=== PATIENT | male | born 2000 | race Two or more races ===

== ENCOUNTER 2021-01-24 17:50 | Emergency (ER) | payer SELFPAY ==
--- NOTE | ~2021-01-24 | XR_ITS ---
EXAMINATION: LEFT HAND CLINICAL INFORMATION: Middle finger swelling and pain COMPARISON: None TECHNIQUE: 3 views left hand FINDINGS: Soft tissue swelling is present predominantly centered around the PIP joint of the third digit. There is a tiny avulsion fracture arising from the inferolateral lateral corner of the middle phalanx. No other fractures are seen. XR/XR hand wrist LT IMPRESSION: Tiny avulsion fracture arising from the inferolateral corner of the middle phalanx of the third digit
--- NOTE | ~2021-01-24 | US_ITS ---
EXAMINATION: US VENOUS WITH DOPPLER UPPER EXTREMITY, RIGHT CLINICAL INFORMATION: Edema and swelling COMPARISON: None TECHNIQUE: Ultrasound of the upper extremity is performed using compression sonography and color and pulse Doppler flow with assessment of augmentation of flow. There is also imaging and Doppler assessment of the jugular and subclavian veins. Spectral analysis with color-flow imaging is performed. FINDINGS: Respiratory variation, normal compression, and augmented flow are noted throughout the upper extremity including the axillary, brachial, cubital, and radial and ulnar veins. There is normal flow in the internal jugular and subclavian veins. There is no visible deep or superficial thrombophlebitis. If the patient's symptoms progress, a followup ultrasound in 5 -7 days might be of value to exclude proximal propagation from a nonvisualized distal arm vein. US/US venous duplex UE RT IMPRESSION: No DVT demonstrated in the right upper extremity
[2021-01-24 19:54] VITALS: BP 138/78; PULSE 86; RESP 18; TEMP 36.8; O2SAT 99; BMI 25.0
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
[2021-01-24 22:00] VITALS: BP 124/67; PULSE 74; RESP 16; TEMP 36.5; O2SAT 98
== END 2021-01-24 23:44 | disposition home or self-care (01) ==
PROVIDERS: Emergency Provider Internal Medicine
DX: S62.653A Nondisplaced fracture of middle phalanx of left middle finger, initial encounter for closed fracture (principal); S41.131A Puncture wound without foreign body of right upper arm, initial encounter; M79.621 Pain in right upper arm; M79.642 Pain in left hand; R60.0 Localized edema; W26.0XXA Contact with knife, initial encounter; Y93.9 Activity, unspecified; Y92.9 Unspecified place or not applicable; Y99.9 Unspecified external cause status; Z79.899 Other long term (current) drug therapy
CPT/HCPCS: 29130; 73110; 73130; 93971; 99284

== ENCOUNTER 2021-01-31 02:49 | Emergency (ER) | payer MEDICAID, SELFPAY ==
[2021-01-31 04:14] VITALS: BP 129/68; PULSE 70; RESP 18; TEMP 36.4; O2SAT 98; BMI 24.3
[2021-01-31 06:31] LABS: Amphetamine Screen Urine Not Detected (Not Detect); Barbiturates, Urine Not Detected (Not Detect); Benzodiazepines Screen Urine Not Detected (Not Detect); Cannabinoid Screen Urine POSITIVE (Not Detect); Cocaine Screen Urine POSITIVE (Not Detect); Opiate Screen Urine POSITIVE (Not Detect); Phencyclidine Screen Urine Not Detected (Not Detect)
--- NOTE | 2021-01-31 09:19 | MHC.RECOVSUP ---
Recovery Support note: Patient is a 20 year old Chilean speaking male who presented to [facility] ED seeking detox. Patient reports using a lot of percocet and that he has never been to detox before. Patient reports he has tried Suboxone in the past however did not like it. Patient reports he has made attempts to find a bed this morning and was unsuccessful. Patient reports he is willing to go anywhere for treatment. This senior mortgage underwriter will assist patient in securing an ATS bed.
--- NOTE | 2021-01-31 09:26 | ED.GENADULT ---
HPI - General Adult General Chief complaint: General Medical Stated complaint: seeking detox Time Seen by Provider: 01/31/21 08:07 Source: patient Mode of arrival: ambulatory History of Present Illness HPI narrative: 20-year-old male no significant past medical history presenting to the ED seeking detox. Patient reports using Percocets, heroin, and marijuana, admits last used yesterday morning. Admits to using about 8 pills of 30 mg of Percocet daily. Admits to feeling nauseous, injury/chills, mild abdominal discomfort. Denies SI/HI, CP/SOB, fever Onset (ago): day(s) Related Data Previous Rx's Medication Instructions Recorded acetaminophen [Tylenol Extra 500 mg PO Q6H PRN #20 tab 01/24/21 Strength] naproxen 500 mg PO BID PRN 10 Days #20 tab 01/24/21 Allergies Allergy/AdvReac Type Severity Reaction Status Date / Time No Known Allergies Allergy Verified 01/24/21 19:53 Review of Systems Review of Systems: Constitutional: No Fever, + Chills Eyes: No Eye Pain, No Swelling, No Vision Changes Cardiovascular: No Chest Pain, No SOB Respiratory: No Cough, No Sputum Gastrointestinal: +Nausea, No Vomiting, No Diarrhea, No Constipation,+ Abdominal pain Genitourinary: No Dysuria, No Urinary Frequency, No Hematuria Musculoskeletal: No joint pain, No Myalgias Skin: No Skin Lesions, No rash Neuro: No Weakness, No Numbness Psych: No SI/HI Yes all other systems are reviewed and are negative [facility] Past Medical History Attestation statement: The following information was validated with the patient. Medical History (Updated 01/31/21 @ 11:00 by SURYA Angeles) No pertinent past medical history Social History Social History Advance Directives: No Advance Directives Information Provided: No Physical Exam Vital Signs: Vital Signs: Last Vital Signs Temp 97.5 F 01/31/21 04:14 Pulse 70 01/31/21 04:14 Resp 18 01/31/21 04:14 BP 129/68 01/31/21 04:14 Pulse Ox 98 01/31/21 04:14 Body Mass Index 24.3 Const: General: cooperative, healthy appearing, no acute distress, well developed, alert and awake Orientation/consciousness: patient oriented x3 Limitations: no limitations HENMT: Head: Yes normal to inspection Ears: hearing grossly normal bilaterally General nose exam: Normal external nose present Face and sinus: Yes normal facial exam Eyes: General: appearance normal, both eyes and all related structures EOM: EOMs intact bilaterally Neck: Neck: Yes normal visual inspection Resp: Effort & Inspection: normal respiratory effort Auscultation: clear to auscultation bilaterally, no rales, no rhonchi and no wheezes Cardio: Rate: regular rate Heart sounds: S1 normal heart sound present and S2 normal heart sound present GI: Inspection: Yes normal to inspection Palpation (GI): Soft to palpation, nontender, no guarding and not rigid Skin: Rashes: no rashes Wounds: no wounds Neuro: General: patient oriented x3, tone normal and moves all extremities Gait exam (Neuro): Normal gait present Extrem: General: Yes normal to inspection Course Course Course Narrative: -tox screen positive for opiates, cocaine, and THC -[facility] legal recovery specialist secured a bed in [place] for detox for patient, will discharge with plan for detox Medical Decision Making MDM Narrative Medical decision making narrative: 20-year-old male no significant past medical history presenting to the ED seeking detox. Patient reports using Percocets, heroin, and marijuana, admits last used yesterday morning. On exam vital signs stable, NAD, nontoxic, sleeping comfortably, abdomen soft/nontender, lungs CTA. Patient has not appeared to be in withdrawal at this time. Plan: [facility], will have legal recovery specialist speak to patient for detox references Lab Data Labs: Lab Results 01/31/21 Range/Units 06:06 Urine Opiates Screen POSITIVE H (Not Detect) Ur Barbiturates Screen Not Detected (Not Detect) Ur Phencyclidine Scrn Not Detected (Not Detect) Ur Amphetamines Screen Not Detected (Not Detect) U Benzodiazepines Scrn Not Detected (Not Detect) Urine Cocaine Screen POSITIVE H (Not Detect) U Marijuana (THC) Screen POSITIVE H (Not Detect) Discharge Plan Discharge Clinical Impression: Substance abuse Patient Disposition: Xfer Other Transfer Details: Detox in [place] Instructions: Polysubstance Abuse (ED) Additional Instructions: You have a detox bed in [place] proceed to this facility as scheduled for you Please do not take drugs or drink alcohol it can kill you If you have any thoughts of hurting herself or hurting others please return to the ED Prescriptions: No Action acetaminophen [Tylenol Extra Strength] 500 mg tablet 500 mg PO Q6H PRN (Reason: pain or fever) Qty: 20 RF: 0 naproxen 500 mg tablet 500 mg PO BID PRN (Reason: pain) 10 Days Qty: 20 RF: 0 Referrals: [facility] [Physician] - 2 days [facility] [Primary Care Provider] - 2 days
--- NOTE | 2021-01-31 11:03 | MHC.RECOVSUP ---
Recovery Support note: Patient was referred to [facility] in [place]. This parts data writer spoke with Kenya HOU who reports that patient is an appropriate referral and he is approved for admission. She reports a bed is currently being held and for patient to get to the facility as soon as possible. This parts data writer spoke with patient and his family. Patient is agreeable to going to [facility] and reports his family will be able to transport him to the facility. Patient and family reports no questions at this time. Discussed case with patients ED provider.
--- NOTE | 2021-01-31 11:10 | PC.NURSE ---
pt has remained calm and cooperative while in tx area and in no distress. academic coach has assisted pt with detox placement and family is transporting pt pt is agrreable to plan of care pt departed with family.
== END 2021-01-31 14:49 | disposition other institution (70) ==
PROVIDERS: Emergency Provider Emergency Medicine
DX: F11.10 Opioid abuse, uncomplicated (principal); F12.10 Cannabis abuse, uncomplicated
CPT/HCPCS: 80307; 99283

== ENCOUNTER 2022-01-19 09:59 | Emergency (ER) | payer MEDICAID, SELFPAY ==
--- NOTE | ~2022-01-19 | CT_ITS ---
EXAMINATION: CT ABDOMEN AND PELVIS WITHOUT CONTRAST CLINICAL INFORMATION: Abdominal pain COMPARISON: None TECHNIQUE: Multidetector volumetric imaging was performed from the superior aspect of the liver through the pubic symphysis. Sagittal and coronal reformatted images were obtained on the technologist's workstation. This CT examination was performed using dose optimization techniques as appropriate, variously including the following: *Automated exposure control *Adjustment of mA and/or kV according to patient size (this includes techniques or standardized protocols for targeted exams where dose is matched to indication/reason for exam; i.e. extremities or head) *Use of iterative reconstruction technique DLP: 518 mGy-cm FINDINGS: LUNG BASES: The visualized lung bases are unremarkable. LIVER, GALLBLADDER, AND BILIARY TREE: The liver is normal in size and shape but demonstrates minimally decreased attenuation suggesting hepatic steatosis. No focal hepatic lesion or biliary ductal dilatation is present. The gallbladder is unremarkable with no evidence of radiopaque gallstones, gallbladder wall thickening, or obvious pericholecystic inflammatory changes. PANCREAS: Unremarkable. SPLEEN: Unremarkable. ADRENAL GLANDS: Unremarkable. KIDNEYS AND URETERS: The kidneys are normal in size, shape, and attenuation. No hydronephrosis, hydroureter, or calculi seen. No perinephric stranding. BLADDER: Unremarkable. GASTROINTESTINAL TRACT: The small and large bowel are unremarkable. The appendix is unremarkable. ABDOMINAL WALL: No significant hernia is appreciated. LYMPH NODES: Normal. VASCULAR: Unremarkable. PELVIC VISCERA: Unremarkable. OSSEOUS STRUCTURES: Mild degenerative changes are present lower thoracic spine with Schmorl's nodes at the endplates of T10 and T11 and a superior endplate Schmorl's node at L1. CT/CT abdomen pelvis wo con IMPRESSION: 1. No significant abnormality. 2. Incidental note made of normal-sized liver with question of hepatic steatosis as well as mild degenerative changes in the spine with Schmorl's nodes. Fleischner guidelines were followed.
[2022-01-19 10:07] VITALS: BP 126/58; PULSE 62; RESP 18; TEMP 36.1; O2SAT 97; BMI 25.8
[2022-01-19 10:43] VITALS: BP 116/71; PULSE 58; RESP 16; O2SAT 96
--- NOTE | 2022-01-19 10:57 | ED.GENADULT ---
HPI - General Adult General Chief complaint: Abdominal Pain Stated complaint: vomiting, diarrhea, abd pain Time Seen by Provider: 01/19/22 10:57 Source: patient Mode of arrival: ambulatory Limitations: no limitations History of Present Illness HPI narrative: Patient is a 21 year old male presenting to the emergency department today with abdominal pain, nausea, and vomiting. Patient states that starting last night, he began having abdominal pain, nauea, and vomiting. Patient denies any dizziness, lightheadedness, fever, chills, blurry vision, double vision, loss of vision, chest pain, difficulty breathing, shortness of breath, back pain, night sweats, pain with urination, increased urinary frequency, increased urinary urgency, blood in his urine or stool, syncope or a near syncopal episode, recent trauma or falls, bowel incontinence, bladder incontinence, bowel retention, bladder retention, or any other complaints at this time. Onset (ago): day(s) (1) Location: abdomen Radiation: non-radiation Severity: mild Severity scale (1-10): 2 Quality: dull Pain Consistency: constant Relieving factors: none Exacerbating factors: none Associated symptoms: nausea/vomiting Treatments prior to arrival: none Related Data Previous Rx's Medication Instructions Recorded acetaminophen 500 mg tablet 500 mg PO Q6H PRN pain or fever 01/24/21 (Tylenol Extra Strength) #20 tabs naproxen 500 mg tablet 500 mg PO BID PRN pain 10 days #20 01/24/21 tabs Allergies Allergy/AdvReac Type Severity Reaction Status Date / Time No Known Allergies Allergy Verified 01/24/21 19:53 Review of Systems Constitutional: Constitutional: Reports no additional constitutional complaints, Denies chills, Denies fever(s) and Denies night sweats Eyes: Eyes: Reports no additional eye complaints, Denies blurry vision, Denies change in vision, Denies diplopia, Denies eye discharge, Denies loss of vision and Denies eye pain ENT: Denies dizziness Cardiovascular: Cardiovascular: Reports no additional cardiovascular complaints, Denies chest pain, Denies lightheadedness, Denies Loss of Consciousness and Denies dyspnea Respiratory: Respiratory: Reports no additional respiratory complaints and Denies dyspnea Gastrointestinal: Gastrointestinal: Reports no additional gastrointestinal complaints, Reports abdominal pain, Denies melena, Denies hematochezia, Denies change in bowel habits, Denies change in stool character, Reports nausea and Reports vomiting Genitourinary: Genitourinary: Reports no additional male genitourinary complaints, Denies hematuria, Denies oliguria, Denies difficulty urinating, Denies dysuria, Denies urinary frequency, Denies urinary hesitancy, Denies urinary incontinence and Denies urinary urgency Musculoskeletal: Musculoskeletal: Reports no additional musculoskeletal complaints, Denies numbness and Denies tingling Neurologic: Denies dizziness, Denies loss of vision, Denies numbness and Denies tingling Psychiatric: Psychiatric: Reports no additional psychiatric complaints Endocrine: Endocrine: Reports no additional endocrine complaints Hematologic/Lymphatic: Hematologic/Lymphatic: Reports no additional hematologic/lymphatic complaints Allergic/Immunologic: Allergic/Immunologic: Reports no additional allergic/immunologic complaints PMFSH Past Medical History Attestation statement: The following information was validated with the patient. Source: old records reviewed Medical History No pertinent past medical history Social History Social History Patient Tobacco Use Status: Current everyday Tobacco user Use of substances other than those prescribed or required for medical reasons: Yes Substance Use Type: Opiates Advance Directives: No Advance Directives Information Provided: Yes Physical Exam ED Vital Signs: Vital Signs - 24 hr 01/19/22 10:07 01/19/22 10:43 01/19/22 12:07 Temperature 97 F Pulse Rate 62 58 58 Respiratory Rate 18 16 14 Blood Pressure 126/58 L 116/71 112/73 Pulse Oximetry 97 96 97 Oxygen Delivery Method Room Air Room Air Room Air BMI result Body Mass Index 25.8 Const General: cooperative, no acute distress, alert and awake Nutritional Appearance: well nourished Orientation/consciousness: patient oriented x3 Limitations: no limitations HENMT Head: Yes normal to inspection and Yes atraumatic Ears: hearing grossly normal bilaterally and external ears normal General nose exam: Normal external nose present, no nasal discharge noted and no epistaxis Face and sinus: Yes normal facial exam, No abrasion and No laceration Mouth: Normal oral and palatal mucosa present, no drooling and no muffled voice Eyes General: appearance normal, both eyes and all related structures Periorbital: periorbital findings normal Eyelids: Yes eyelids normal Conjunctivae: conjunctivae normal Pupils: Equal, round and reactive pupils present EOM: EOMs intact bilaterally Neck Neck: Yes normal visual inspection, Yes full ROM and Yes no lymphadenopathy Chest Chest palpation & inspection: normal inspection of the chest Resp Effort & Inspection: normal respiratory effort and able to speak in complete sentences Auscultation: clear to auscultation bilaterally Cardio Rate: regular rate Rhythm: regular rhythm GI Inspection: Yes normal to inspection Palpation (GI): Soft to palpation, not firm, nontender and no guarding Neuro General: patient oriented x3 and moves all extremities Cranial nerves: Yes Equal, round and reactive pupils present Cognition (Neuro): normal cognition Motor exam (neuro): 5/5 motor strength present throughout Sensory Exam: Normal double simultaneous stimulation for sensation Coordination: [id number] test normal Extrem General: Yes normal to inspection, Yes full ROM and Yes capillary refill normal Psych Appearance: grossly normal Mental Status: mental status grossly normal Affect: normal affect Attitude: cooperative Thought process: Normal thought process present Thought content: Normal thought content present Insight: Good insight present (Psych) Medical Decision Making [facility] Narrative Medical decision making narrative: Patient is a 21 year old male presenting to the emergency department today with abdominal pain. Patient's physical exam was unremarkable. Patient's blood work showed a mildly elevated WBC count but was otherwise unremarkable. Patient's urine showed no acute process. Patient's abdominal CT showed no acute process. I explained my physical exam findings as well as all test results to the patient. I answered all questions asked by the patient. I stressed the importance of the patient taking his medication as prescribed. I stressed the importance of the patient following up with his primary care provider. I stressed the importance of the patient returning to the emergency department immediately if his symptoms were to worsen or if he were to develop any dizziness, shortness of breath, difficulty breathing, chest pain, blurry vision, loss of vision, nausea, vomiting, abdominal pain, fever, chills, back pain, or any other complaints. Patient verbalized agreement and understanding with this treatment plan and discharge. Differential Diagnosis Differential Diagnosis: colitis, drug use Medical Records Medical records reviewed: Yes I reviewed the patient's medical records. Lab Data Lab results reviewed: Yes I reviewed the patient's lab results. Result diagrams: 01/19/22 10:55 01/19/22 10:55 Labs: Lab Results 01/19/22 01/19/22 01/19/22 Range/Units 10:55 10:55 10:55 WBC 12.3 H (4.8-10.8) X10*3/uL RBC 4.43 L (4.60-5.80) X10*6/uL Hgb 13.4 L (14.0-18.0) g/dl Hct 38.4 L (42.0-52.0) % MCV 86.7 (80.0-98.0) fL MCH 30.2 (27.0-33.0) pg MCHC 34.9 (31.0-36.0) g/dl RDW 12.5 (11.0-16.0) % Plt Count 216 (160-400) X10*3/uL MPV 10.0 (9.4-12.4) fL Immature Gran % (Auto) 0.3 (0.0-0.4) % Neut % (Auto) 86.6 H (45-73) % Lymph % (Auto) 9.3 L (20-40) % Island % (Auto) 3.5 (2-11) % Eos % (Auto) 0.2 (0-4) % Baso % (Auto) 0.1 (0-2) % Lymph # (Auto) 1.2 (1.2-4.9) X10*3/uL Island # (Auto) 0.4 (0.1-1.2) X10*3/uL Eos # (Auto) 0.0 (0.0-0.4) X10*3/uL Baso # (Auto) 0.0 (0.0-0.2) X10*3/uL Abs Immat Gran (auto) 0.04 H (0.00-0.03) X10*3/uL Absolute Neuts (auto) 10.7 H (2.0-8.3) x10*3/uL Absolute Nucleated RBC 0.000 (0.0-0.012) X10*3/uL Nucleated RBC % (auto) 0.0 (0.0-0.2) /100WBC Sodium 139 (135-145) mmol/L Potassium 3.9 (3.3-5.1) mmol/L Chloride 106 (96-108) mmol/L Carbon Dioxide 24 (22-29) mmol/L Anion Gap 13 (12-20) BUN 11 (9-16) mg/dL Creatinine 0.68 (0.5-1.4) mg/dL Estim Creat Clear Calc 175.9 Estimated GFR > 60 Random Glucose 124 H (60-115) mg/dL Calcium 9.0 (8.4-10.2) mg/dL Total Bilirubin 0.8 (0.0-1.0) mg/dL AST 23 (5-37) U/L ALT 13 (0-40) U/L Alkaline Phosphatase 71 (39-117) U/L Total Protein 7.5 (6.5-8.0) g/dL Albumin 4.3 (3.5-5.0) g/dL Lipase 31 (8-78) U/L Urine Color Urine Appearance Urine pH (5.0-8.0) Ur Specific [place] (1.005-1.025) Urine Protein (NEG-TRACE) MG/DL Urine Glucose (UA) (NEG) MG/DL Urine Ketones (NEG) MG/DL Urine Blood (NEG) Urine Nitrite (NEG) Ur Leukocyte Esterase (NEG) Urine Opiates Screen (Not Detect) Urine Fentanyl Screen (Not Detect) Ur Barbiturates Screen (Not Detect) Ur Phencyclidine Scrn (Not Detect) Ur Amphetamines Screen (Not Detect) U Benzodiazepines Scrn (Not Detect) Urine Cocaine Screen (Not Detect) U Marijuana (THC) Screen (Not Detect) COVID-19 (KENDALL) (Negative) COVID-19 Clin Com Influenza Type A (DORA) Negative (Negative) Influenza Type B (DORA) Negative (Negative) Influenza A & B Note See Note 01/19/22 01/19/22 01/19/22 Range/Units 10:55 14:14 14:14 WBC (4.8-10.8) X10*3/uL RBC (4.60-5.80) X10*6/uL Hgb (14.0-18.0) g/dl Hct (42.0-52.0) % MCV (80.0-98.0) fL MCH (27.0-33.0) pg MCHC (31.0-36.0) g/dl RDW (11.0-16.0) % Plt Count (160-400) X10*3/uL MPV (9.4-12.4) fL Immature Gran % (Auto) (0.0-0.4) % Neut % (Auto) (45-73) % Lymph % (Auto) (20-40) % Island % (Auto) (2-11) % Eos % (Auto) (0-4) % Baso % (Auto) (0-2) % Lymph # (Auto) (1.2-4.9) X10*3/uL [place] # (Auto) (0.1-1.2) X10*3/uL Eos # (Auto) (0.0-0.4) X10*3/uL Baso # (Auto) (0.0-0.2) X10*3/uL Abs Immat Gran (auto) (0.00-0.03) X10*3/uL Absolute Neuts (auto) (2.0-8.3) x10*3/uL Absolute Nucleated RBC (0.0-0.012) X10*3/uL Nucleated RBC % (auto) (0.0-0.2) /100WBC Sodium (135-145) mmol/L Potassium (3.3-5.1) mmol/L Chloride (96-108) mmol/L Carbon Dioxide (22-29) mmol/L Anion Gap (12-20) BUN (9-16) mg/dL Creatinine (0.5-1.4) mg/dL Estim Creat Clear Calc Estimated GFR Random Glucose (60-115) mg/dL Calcium (8.4-10.2) mg/dL Total Bilirubin (0.0-1.0) mg/dL AST (5-37) U/L ALT (0-40) U/L Alkaline Phosphatase (39-117) U/L Total Protein (6.5-8.0) g/dL Albumin (3.5-5.0) g/dL Lipase (8-78) U/L Urine Color YELLOW Urine Appearance CLEAR Urine pH 7.0 (5.0-8.0) Ur Specific [place] 1.025 (1.005-1.025) Urine Protein NEG (NEG-TRACE) MG/DL Urine Glucose (UA) NEG (NEG) MG/DL Urine Ketones >=80 (NEG) MG/DL Urine Blood NEG (NEG) Urine Nitrite NEG (NEG) Ur Leukocyte Esterase NEG (NEG) Urine Opiates Screen POSITIVE H (Not Detect) Urine Fentanyl Screen POSITIVE H (Not Detect) Ur Barbiturates Screen Not Detected (Not Detect) Ur Phencyclidine Scrn Not Detected (Not Detect) Ur Amphetamines Screen Not Detected (Not Detect) U Benzodiazepines Scrn Not Detected (Not Detect) Urine Cocaine Screen Not Detected (Not Detect) U Marijuana (THC) Screen POSITIVE H (Not Detect) COVID-19 (KENDALL) Negative (Negative) COVID-19 Clin Com See Note Influenza Type A (DORA) (Negative) Influenza Type B (DORA) (Negative) Influenza A & B Note Imaging Data CT scan - abdomen: Attestation: I personally reviewed and interpreted this imaging study as follows: My impression: No acute process. Radiologist's impression: EXAMINATION: CT ABDOMEN AND PELVIS WITHOUT CONTRAST? CLINICAL INFORMATION: Abdominal pain? COMPARISON: None? TECHNIQUE: Multidetector volumetric imaging was performed from the superior aspect of the liver through the pubic symphysis. Sagittal and coronal reformatted images were obtained on the technologist's workstation.? This CT examination was performed using dose optimization techniques as appropriate, variously including the following: *Automated exposure control *Adjustment of mA and/or kV according to patient size (this includes techniques or standardized protocols for targeted exams where dose is matched to indication/reason for exam; i.e. extremities or head) *Use of iterative reconstruction technique DLP: 518 mGy-cm FINDINGS: LUNG BASES: The visualized lung bases are unremarkable.? LIVER, GALLBLADDER, AND BILIARY TREE: The liver is normal in size and shape but demonstrates minimally decreased attenuation suggesting hepatic steatosis. No focal hepatic lesion or biliary ductal dilatation is present. The gallbladder is unremarkable with no evidence of radiopaque gallstones, gallbladder wall thickening, or obvious pericholecystic inflammatory changes.? PANCREAS: Unremarkable.? SPLEEN: Unremarkable.? ADRENAL GLANDS: Unremarkable.? KIDNEYS AND URETERS: The kidneys are normal in size, shape, and attenuation. No hydronephrosis, hydroureter, or calculi seen. No perinephric stranding. ? BLADDER: Unremarkable.? GASTROINTESTINAL TRACT: The small and large bowel are unremarkable. The appendix is unremarkable.? ABDOMINAL WALL: No significant hernia is appreciated.? LYMPH NODES: Normal. VASCULAR: Unremarkable. PELVIC VISCERA: Unremarkable.? OSSEOUS STRUCTURES: Mild degenerative changes are present lower thoracic spine with Schmorl's nodes at the endplates of T10 and T11 and a superior endplate Schmorl's node at L1.? CT/CT abdomen pelvis wo con IMPRESSION: 1.? No significant abnormality.? 2.? Incidental note made of normal-sized liver with question of hepatic steatosis as well as mild degenerative changes in the spine with Schmorl's nodes. ? Fleischner guidelines were followed. Dictated By: Bull Kelley MD Signed By: Electronically signed by Bull Kelley MD 01/19/22 4025 Discharge Plan Discharge Clinical Impression: Gastroenteritis Patient Disposition: Home, Self-Care Instructions: Acute Nausea and Vomiting (ED) Additional Instructions: Follow up with your primary care provider. Return to the emergency department immediately if your symptoms worsen or if you develop any dizziness, shortness of breath, difficulty breathing, chest pain, blurry vision, loss of vision, nausea, vomiting, abdominal pain, fever, chills, back pain, or any other complaints. Prescriptions: No Action acetaminophen [Tylenol Extra Strength] 500 mg tablet 500 mg PO Q6H PRN (Reason: pain or fever) Qty: 20 0RF naproxen 500 mg tablet 500 mg PO BID PRN (Reason: pain) 10 Days Qty: 20 0RF Referrals: [facility] [Provider Group] (Call to establish and follow up with a primary care provider. If you already have one, follow up with their office. ) [facility] [place] [Provider Group] (Call to establish and follow up with a primary care provider. If you already have one, follow up with their office. ) [facility] [Provider Group] (Call to establish and follow up with a primary care provider. If you already have one, follow up with their office. ) Print Language: German
[2022-01-19 11:00] LABS: MANUAL DIFF FLAG NO
[2022-01-19] MEDS: ondansetron HCL 4 MG/2 ML VIAL IVPUSH (11:01)
[2022-01-19] MEDS: 0.9 % Sodium Chloride 1,000 ML 999 ML IV (11:02)
[2022-01-19 11:03] LABS: Basophils Percent Auto 0.1 % (0-2); Eosinophils Percent Auto 0.2 % (0-4); Hematocrit 38.4 % (42.0-52.0); Hemoglobin 13.4 g/dl (14.0-18.0); Imm Gran Abs Auto 0.04 X10*3/uL (0.00-0.03); Imm Gran Pct Auto 0.3 % (0.0-0.4); Lymphocytes Absolute Auto 1.2 X10*3/uL (1.2-4.9); Lymphocytes Percent Auto 9.3 % (20-40); Mean Corpuscular HGB Conc 34.9 g/dl (31.0-36.0); Mean Corpuscular Hemoglobin 30.2 pg (27.0-33.0); Mean Corpuscular Volume 86.7 fL (80.0-98.0); Monocytes Absolute Auto 0.4 X10*3/uL (0.1-1.2); Monocytes Percent Auto 3.5 % (2-11); Neutrophils Absolute Auto 10.7 x10*3/uL (2.0-8.3); Neutrophils Percent Auto 86.6 % (45-73); Platelet Count 216 X10*3/uL (160-400); Red Blood Count 4.43 X10*6/uL (4.60-5.80); Red Cell Distribution Width 12.5 % (11.0-16.0); White Blood Count 12.3 X10*3/uL (4.8-10.8)
[2022-01-19 11:31] LABS: Alanine Aminotransferase 13 U/L (0-40); Albumin Level 4.3 g/dL (3.5-5.0); Alkaline Phosphatase 71 U/L (39-117); Anion Gap 13 (12-20); Aspartate Amino Transferase 23 U/L (5-37); Bilirubin Total 0.8 mg/dL (0.0-1.0); Blood Urea Nitrogen 11 mg/dL (9-16); Carbon Dioxide 24 mmol/L (22-29); Chloride 106 mmol/L (96-108); Creatinine Clr Calc Pharmacy 175.9; Estimated Glomerular Filt Rate > 60; Glucose Random 124 mg/dL (60-115); Lipase 31 U/L (8-78); Potassium 3.9 mmol/L (3.3-5.1); Sodium 139 mmol/L (135-145); Total Protein 7.5 g/dL (6.5-8.0)
[2022-01-19 11:46] LABS: COVID-19 Test Negative (Negative); IDNOW Serial# 16C4AD1C
[2022-01-19 11:47] LABS: Influenza A Negative (Negative); Influenza B2 Negative (Negative)
[2022-01-19 12:07] VITALS: BP 112/73; PULSE 58; RESP 14; O2SAT 97
[2022-01-19 14:25] LABS: Appearance Urine CLEAR; Color Urine YELLOW; Glucose Urine UA NEG (NEG); Leukocyte Esterase Urine NEG (NEG); Nitrite Urine NEG (NEG); Specific Gravity - Urine 1.025 (1.005-1.025); Urine Blood NEG (NEG); Urine Ketones >=80 MG/DL (NEG); Urine Protein NEG (NEG-TRACE)
[2022-01-19 14:41] LABS: Amphetamine Screen Urine Not Detected (Not Detect); Barbiturates, Urine Not Detected (Not Detect); Benzodiazepines Screen Urine Not Detected (Not Detect); Cannabinoid Screen Urine POSITIVE (Not Detect); Cocaine Screen Urine Not Detected (Not Detect); Fentanyl, urine POSITIVE (Not Detect); Opiate Screen Urine POSITIVE (Not Detect); Phencyclidine Screen Urine Not Detected (Not Detect)
== END 2022-01-19 15:17 | disposition home or self-care (01) ==
PROVIDERS: Physician Assistant Medical; Emergency Provider Emergency Medicine
DX: K52.9 Noninfective gastroenteritis and colitis, unspecified (principal); R10.9 Unspecified abdominal pain; R11.2 Nausea with vomiting, unspecified; Z20.822 Contact with and (suspected) exposure to COVID-19; F17.200 Nicotine dependence, unspecified, uncomplicated; Z71.6 Tobacco abuse counseling; Z79.899 Other long term (current) drug therapy
CPT/HCPCS: 36415; 74176; 80053; 80307; 81003; 83690; 85025; 87502; 87635; 96374; 99284; J2405

== ENCOUNTER 2022-03-27 14:41 | Emergency (ER) | payer MEDICAID, SELFPAY ==
--- NOTE | ~2022-03-27 | XR_ITS ---
EXAMINATION: XR CHEST CLINICAL INFORMATION: Cough, congestion. COMPARISON: None TECHNIQUE: 2 views of the chest were obtained. FINDINGS: The lungs are clear. No airspace consolidation or groundglass opacity or effusion. Heart size normal. The hilar and mediastinal contours and bony structures are unremarkable. XR/XR chest 2V IMPRESSION: Lungs clear.
[2022-03-27 15:09] VITALS: BP 115/70; PULSE 74; RESP 16; TEMP 36.6; O2SAT 96; BMI 25.8
[2022-03-27 15:34] LABS: COVID-19 Test Negative (Negative)
--- NOTE | 2022-03-27 17:27 | ED.URI ---
HPI - URI/Sore Throat General Chief Complaint: Upper Respiratory Symptoms Stated Complaint: cough chest hurts Time Seen by Provider: 03/27/22 17:19 Source: patient Mode of arrival: ambulatory Limitations: no limitations History of Present Illness HPI Narrative: 21-year-old male who is a smoker presents with 4 days of subjective fevers, cough and chest discomfort with coughing only. No shortness of breath, leg swelling or leg pain, vomiting, diarrhea, abdominal pain, headache, neck pain or neck stiffness, rash. Related Data Previous Rx's Medication Instructions Recorded acetaminophen 500 mg tablet 500 mg PO Q6H PRN pain or fever 01/24/21 (Tylenol Extra Strength) #20 tabs naproxen 500 mg tablet 500 mg PO BID PRN pain 10 days #20 01/24/21 tabs azithromycin 250 mg tablet See Rx Instructions PO .COMPLEX #6 03/27/22 tabs benzonatate 200 mg capsule 200 mg PO TID PRN cough #20 caps 03/27/22 Allergies Allergy/AdvReac Type Severity Reaction Status Date / Time No Known Allergies Allergy Verified 01/24/21 19:53 Review of Systems Review of Systems: Yes all other systems are reviewed and are negative Constitutional: Constitutional: Reports no additional constitutional complaints, Denies body ache(s), Denies chills, Reports fever(s), Denies headache(s) and Denies weakness Eyes: Eyes: Reports no additional eye complaints and Denies change in vision ENT: Reports system reviewed and no additional complaints, except as documented, Denies dizziness, Denies headache(s), Denies nasal congestion, Denies nasal discharge and Denies neck pain Cardiovascular: Cardiovascular: Reports no additional cardiovascular complaints, Reports chest pain, Denies leg edema and Denies dyspnea Respiratory: Respiratory: Reports no additional respiratory complaints, Reports cough and Denies dyspnea Gastrointestinal: Gastrointestinal: Reports no additional gastrointestinal complaints, Denies abdominal pain, Denies diarrhea, Denies nausea and Denies vomiting Genitourinary: Genitourinary: Denies urinary incontinence Musculoskeletal: Musculoskeletal: Reports no additional musculoskeletal complaints, Denies back pain, Denies arthralgias, Denies joint swelling, Denies neck pain, Denies numbness and Denies tingling Integumentary/Breasts: Skin/Breast: Reports system reviewed and no additional complaints, except as docu and Denies rash Neurologic: Reports system reviewed and no additional complaints, except as documented, Denies Abnormal speech present, Denies dizziness, Denies headache(s), Denies numbness, Denies tingling and Denies weakness PMFSH Past Medical History Attestation statement: The following information was validated with the patient. Source: old records reviewed and nursing notes reviewed Medical History No pertinent past medical history Social History Social History Patient Tobacco Use Status: Current everyday Tobacco user Substance Use Type: Opiates Advance Directives: No Advance Directives Information Provided: No Physical Exam Vital Signs: Vital Signs: Last Vital Signs Temp 98 F 03/27/22 15:09 Pulse 74 03/27/22 15:09 Resp 16 03/27/22 15:09 BP 115/70 03/27/22 15:09 Pulse Ox 96 03/27/22 15:09 O2 Del Method 03/27/22 15:09 BMI result Body Mass Index 25.8 Const: General: cooperative, healthy appearing, comfortable and no acute distress Orientation/consciousness: patient oriented x3 Limitations: no limitations HEENT: Head: Yes normal to inspection Ears: hearing grossly normal bilaterally General nose exam: Normal external nose present Face and sinus: Yes normal facial exam Mouth: Normal oral and palatal mucosa present Throat: Yes posterior oropharynx normal Eyes: General: appearance normal, both eyes and all related structures Pupils: Equal, round and reactive pupils present Neck: Neck: Yes normal visual inspection Chest: Chest palpation & inspection: normal inspection of the chest Resp: Other: Right lower lobe wheezing with rhonchi otherwise clear Effort & Inspection: normal respiratory effort Cardio: Rate: regular rate Rhythm: regular rhythm Peripheral pulses: Peripheral pulses 2+ throughout GI: Inspection: Yes normal to inspection Palpation (GI): Soft to palpation and nontender Auscultation: normal bowel sounds Back/Spine/Pelvis: Thoracic/Lumbar Spine: thoracic and lumbar spine normal to inspection Skin: General skin exam: no rashes or lesions noted Neuro: General: patient oriented x3, no focal motor deficits and normal sensation to monofilament Cranial nerves: Yes Equal, round and reactive pupils present Cognition (Neuro): normal cognition Speech: No Abnormal speech present Gait exam (Neuro): Normal gait present Motor exam (neuro): 5/5 motor strength present throughout Extrem: General: Yes normal to inspection MDM - URI/Sore Throat MDM Narrative Medical decision making narrative: Twenty 1-year-old male here with 4 days of chest discomfort with coughing, nonproductive cough and subjective fevers. Rapid COVID from triage is negative Chest x-ray shows no finding Clinically patient has wheezing and rhonchi in the right lower lobe consistent with community-acquired pneumonia. Patient to be sent home with albuterol MDI, azithromycin and cough suppressant. No hypoxia or tachypnea. Overall nontoxic appearing. Reviewed worrisome signs and symptoms when to return to the emergency room. Comfortable discharge home. Medical Records Attestation: I reviewed the patient's medical records. Lab Data Attestation: I reviewed the patient's lab results. Labs: Lab Results 03/27/22 Range/Units 15:13 COVID-19 ([facility]) Negative (Negative) COVID-19 Clin Com See Note Imaging Data Chest x-ray: Attestation: I personally reviewed and interpreted this imaging study as follows: Radiologist's impression: [address] [address] XRay Report Signed Patient: Alan Heck MR#: [id number] : 2000 Acct:[id number] Age/Sex: 21 / M ADM Date: 03/27/22 Loc: .ED Attending Dr: Ordering Physician: Violet ED Physician Date of Service: 03/27/22 Procedure(s): XR chest 2V Accession Number(s): [id number] cc: Generic ED Physician~ EXAMINATION: XR CHEST CLINICAL INFORMATION: Cough, congestion. COMPARISON: None TECHNIQUE: 2 views of the chest were obtained. FINDINGS: The lungs are clear. No airspace consolidation or groundglass opacity or effusion. Heart size normal. The hilar and mediastinal contours and bony structures are unremarkable. XR/XR chest 2V IMPRESSION: Lungs clear. Discharge Plan Discharge Clinical Impression: CAP (community acquired pneumonia) Patient Disposition: Home, Self-Care Additional Instructions: COVID test is negative Alternate Motrin or Tylenol for pain Increase fluids at home Use the inhaler 2 puffs every 4 hours as needed for cough or wheezing Prescriptions: New azithromycin 250 mg tablet See Rx Instructions .ROUTE .COMPLEX Qty: 6 0RF Rx Instructions: For 250 mg dose pack: take 500 mg today (day 1), then 250 mg for 4 days (days 2-5) benzonatate 200 mg capsule 200 mg PO TID PRN (Reason: cough) Qty: 20 0RF No Action acetaminophen [Tylenol Extra Strength] 500 mg tablet 500 mg PO Q6H PRN (Reason: pain or fever) Qty: 20 0RF naproxen 500 mg tablet 500 mg PO BID PRN (Reason: pain) 10 Days Qty: 20 0RF Referrals: Physician,Unknown J [Physician] - Stand Alone Forms: Work/School Release
[2022-03-27] MEDS: Albuterol Sulfate 90 MCG 8 GM INHALER 2 PUFF INHALE (17:35)
== END 2022-03-27 17:50 | disposition home or self-care (01) ==
LOC: HO.ED 17:35
PROVIDERS: Emergency Provider Internal Medicine
DX: J18.8 Other pneumonia, unspecified organism (principal); Z20.822 Contact with and (suspected) exposure to COVID-19; R50.9 Fever, unspecified; F17.200 Nicotine dependence, unspecified, uncomplicated
CPT/HCPCS: 71046; 87635; 99282; 99284

== ENCOUNTER 2022-04-24 20:28 | Emergency (ER) | payer MEDICAID, SELFPAY ==
[2022-04-24 21:09] VITALS: BP 104/47; PULSE 58; RESP 20; TEMP 36.7; O2SAT 98; BMI 25.8
[2022-04-24 21:31] LABS: Strep A Nucleic Acid Negative (Negative)
[2022-04-24 21:33] LABS: IDNOW Serial# 16C4AD1C
[2022-04-24 21:34] LABS: COVID-19 Test Negative (Negative)
[2022-04-24 23:40] VITALS: BP 91/50; PULSE 55; RESP 16; TEMP 36.7; O2SAT 97
--- NOTE | 2022-04-25 01:01 | ED.GENADULT ---
HPI - General Adult General Chief complaint: General Medical Stated complaint: Flu like symptoms Time Seen by Provider: 04/25/22 00:51 Source: patient Mode of arrival: ambulatory Limitations: no limitations History of Present Illness HPI narrative: Patient complaining of sore throat cough since yesterday had low-grade fever also painful to swallow no rash no shortness of breath Related Data Previous Rx's Medication Instructions Recorded acetaminophen 500 mg tablet 500 mg PO Q6H PRN pain or fever 01/24/21 (Tylenol Extra Strength) #20 tabs naproxen 500 mg tablet 500 mg PO BID PRN pain 10 days #20 01/24/21 tabs azithromycin 250 mg tablet See Rx Instructions PO .COMPLEX #6 03/27/22 tabs benzonatate 200 mg capsule 200 mg PO TID PRN cough #20 caps 03/27/22 amoxicillin 500 mg capsule 500 mg PO TID #30 caps 04/25/22 Allergies Allergy/AdvReac Type Severity Reaction Status Date / Time No Known Allergies Allergy Verified 01/24/21 19:53 Review of Systems Review of Systems: Yes all other systems are reviewed and are negative [facility] Past Medical History Medical History No pertinent past medical history Social History Social History Patient Tobacco Use Status: Current everyday Tobacco user Substance Use Type: Opiates Advance Directives: No Physical Exam ED Vital Signs: Vital Signs - 24 hr 04/24/22 21:09 04/24/22 23:40 Temperature 98.1 F 98.1 F Pulse Rate 58 55 Respiratory Rate 20 16 Blood Pressure 104/47 L 91/50 L Pulse Oximetry 98 97 Oxygen Delivery Method Room Air Room Air BMI result Body Mass Index 25.8 Appearance: Alert. Oriented X3. No acute distress. ENT: Slight erythema no exudate Oral Mucosa moist Neck: Normal inspection. Neck supple. CVS: Normal heart rate and rhythm. Pulses normal. Respiratory: No respiratory distress. Equal air entry bilateral, no wheezing/rales/rhonchi abd: Soft nontender Skin: Skin warm and dry. Normal skin color. Normal skin turgor. Extremities: No lower extremity edema. Neuro: Oriented X 3. Medical Decision Making Lab Data Lab results reviewed: Yes I reviewed the patient's lab results. Labs: Lab Results 04/24/22 04/24/22 Range/Units 21:13 21:13 COVID-19 ([facility]) Negative (Negative) COVID-19 Clin Com See Note S. pyogenes GrpA DORA Negative (Negative) Discharge Plan Discharge Clinical Impression: Acute pharyngitis Patient Disposition: Home, Self-Care Instructions: Pharyngitis (ED) Additional Instructions: Antibiotic as advised Follow with PCP if not better Prescriptions: New amoxicillin 500 mg capsule 500 mg PO TID Qty: 30 0RF No Action acetaminophen [Tylenol Extra Strength] 500 mg tablet 500 mg PO Q6H PRN (Reason: pain or fever) Qty: 20 0RF naproxen 500 mg tablet 500 mg PO BID PRN (Reason: pain) 10 Days Qty: 20 0RF azithromycin 250 mg tablet See Rx Instructions .ROUTE .COMPLEX Qty: 6 0RF Rx Instructions: For 250 mg dose pack: take 500 mg today (day 1), then 250 mg for 4 days (days 2-5) benzonatate 200 mg capsule 200 mg PO TID PRN (Reason: cough) Qty: 20 0RF Stand Alone Forms: Work/School Release Interventions: ED Discharge Assessment Last Done: 04/25/22 01:16 Discharge Date/Time: 04/25/22 01:17
--- OUTSIDE RECORDS SUMMARY | 2022-04-25 01:09 | XMS_ITS | Continuity of Care Document ---
:2000 Author Organization [facility] Address [address] [place] [address]- Care Team Providers Name Role Phone Not on Staff, PCP Primary Care Physician Unavailable Encounter [facility] Date(s): 01/30/21 - 01/31/[address] [address]- Discharge Disposition: A-D/C Walkout Attending Physician: Not on Staff, Attending MD Admitting Physician: Not on Staff, Admitting MD Referring Physician: Not on Staff, Referring MD Allergies, Adverse Reactions, Alerts Substance Reaction Severity Status NKA Active Medications No Known Medications Vital Signs Most recent to oldest [Reference Range]: 1 Oxygen Saturation [94-100 %] 99 % (01/30/21 10:20 PM) Pulse Rate [55-90 bpm] 88 bpm (01/30/21 10:20 PM) Blood Pressure [90-138/55-84 mm Hg] 135/82 mm Hg (01/30/21 10:20 PM) Respiratory Rate [16-30 br/min] 16 br/min (01/30/21 10:20 PM) Temperature [96.8-100.4 DegF] 98.1 DegF (01/30/21 10:20 PM) Mode of Delivery (Oxygen) Room air (01/30/21 10:20 PM) Blood pressure sites Arm, left (01/30/21 10:20 PM) Temperature Route Oral (01/30/21 10:20 PM)
[2022-04-25] MEDS: Amoxicillin 500 MG CAPSULE PO (01:15)
== END 2022-04-25 01:17 | disposition home or self-care (01) ==
PROVIDERS: Emergency Provider Internal Medicine
DX: J02.9 Acute pharyngitis, unspecified (principal); R05.9 Cough, unspecified; R50.9 Fever, unspecified; Z20.822 Contact with and (suspected) exposure to COVID-19; Z79.899 Other long term (current) drug therapy
CPT/HCPCS: 87635; 87651; 99282; 99283

== ENCOUNTER 2022-07-01 18:33 | Emergency (ER) | payer MEDICAID, SELFPAY ==
--- NOTE | ~2022-07-01 | XR_ITS ---
EXAMINATION: XR hip RT w PEL1V, XR hand wrist RT CLINICAL INFORMATION: Reason for Exam s/p dog bite COMPARISON: None. TECHNIQUE: 3 views right hand and scaphoid view right wrist; AP pelvis, AP and frog-leg lateral views right hip FINDINGS: Right hand and wrist: No fracture or dislocation. Joint spaces throughout the hand and wrist are maintained. No appreciable soft tissue gas. No radiodense foreign body. Pelvis and right hip: No fracture or dislocation. Small osseous protuberances/CAM deformity at the femoral head neck junction is seen on the frog-leg lateral view. Bilateral hip joint spaces are maintained. Pubic symphysis and SI joints are congruent and intact. No osseous lesion. No radiodense foreign body or soft tissue gas identified. XR/XR hip RT w PEL1V IMPRESSION: 1. No acute fracture or dislocation identified at the right hand or right hip. 2. No radiodense foreign body or soft tissue gas.
--- NOTE | ~2022-07-01 | XR_ITS ---
EXAMINATION: XR hip RT w PEL1V, XR hand wrist RT CLINICAL INFORMATION: Reason for Exam s/p dog bite COMPARISON: None. TECHNIQUE: 3 views right hand and scaphoid view right wrist; AP pelvis, AP and frog-leg lateral views right hip FINDINGS: Right hand and wrist: No fracture or dislocation. Joint spaces throughout the hand and wrist are maintained. No appreciable soft tissue gas. No radiodense foreign body. Pelvis and right hip: No fracture or dislocation. Small osseous protuberances/CAM deformity at the femoral head neck junction is seen on the frog-leg lateral view. Bilateral hip joint spaces are maintained. Pubic symphysis and SI joints are congruent and intact. No osseous lesion. No radiodense foreign body or soft tissue gas identified. XR/XR hand wrist RT IMPRESSION: 1. No acute fracture or dislocation identified at the right hand or right hip. 2. No radiodense foreign body or soft tissue gas.
[2022-07-01 18:38] VITALS: BP 130/90; PULSE 71; O2SAT 98
[2022-07-01 18:39] VITALS: BP 128/66; PULSE 72; RESP 18; TEMP 36.7; O2SAT 95; BMI 28.8
--- NOTE | 2022-07-01 18:39 | ED_ITS ---
HPI - Wound/Laceration General Chief Complaint: Animal Bite Stated Complaint: dog bite to right hand Time Seen by Provider: 07/01/22 19:19 Source: patient Mode of arrival: ambulatory Limitations: no limitations History of Present Illness HPI narrative: 22-year-old male presenting to the ER with complaints of a dog bite to his right hand/wrist and right hip/thigh area that occurred prior to arrival. He reports that it was a pit bull on [address] in [place]. He reports that the dog was coming out of the house/apartment and ran up to him and bit him unprovoked. He is unsure if the dog is up-to-date on rabies vaccine although he knows where the dog resides. He is unsure if he is up-to-date on tetanus. He denies any other injuries complaints or concerns at this time. Onset (ago): minute(s) (Prior to arrival dog bite) Extremity Location: right: wrist, hand and thigh Place: outdoors Patient tetanus UTD: No Related Data Previous Rx's Medication Instructions Recorded acetaminophen 500 mg tablet 500 mg PO Q6H PRN pain or fever 01/24/21 (Tylenol Extra Strength) #20 tabs naproxen 500 mg tablet 500 mg PO BID PRN pain 10 days #20 01/24/21 tabs azithromycin 250 mg tablet See Rx Instructions PO .COMPLEX #6 03/27/22 tabs benzonatate 200 mg capsule 200 mg PO TID PRN cough #20 caps 03/27/22 amoxicillin 500 mg capsule 500 mg PO TID #30 caps 04/25/22 amoxicillin 875 mg-potassium 1 tab PO BID dog bite 10 days #20 07/01/22 clavulanate 125 mg tablet tabs Allergies Allergy/AdvReac Type Severity Reaction Status Date / Time No Known Allergies Allergy Verified 07/01/22 18:39 Review of Systems Review of Systems: Constitutional : No Fever, No Chills, Cardiovascular : No Chest Pain, No SOB Respiratory : No Dyspnea Gastrointestinal : No abdominal pain Musculoskeletal : No Joint Swelling Skin : positive skin puncture wounds/laceration, No Foreign bodies, No rash, No surrounding erythema Neuro : No Weakness, No Numbness/tingling Psych : No SI/HI/thoughts of self injury Yes all other systems are reviewed and are negative PMFSH Past Medical History Attestation statement: The following information was validated with the patient. Source: old records reviewed and nursing notes reviewed Medical History No pertinent past medical history Social History Social History Patient Tobacco Use Status: Current everyday Tobacco user Substance Use Type: Opiates Advance Directives: No Advance Directives Information Provided: No Physical Exam Vital Signs: Vital Signs: Last Vital Signs Temp 98.0 F 07/01/22 18:39 Pulse 72 07/01/22 18:39 Resp 18 07/01/22 18:39 BP 128/66 07/01/22 18:39 Pulse Ox 95 07/01/22 18:39 O2 Del Method 07/01/22 18:39 BMI result Body Mass Index 28.8 vital signs have been reviewed as normal and appeared to be correct. Blood pressure normal Heart rate normal. Respiration rate normal. Temperature normal. Oxygen saturation normal. Appearance: Alert. Oriented X3. No acute distress. Head: Normal external exam. Normocephalic. Atraumatic. Eyes: PERRLA. EOMI. Conjunctiva and sclera normal. Eyelids normal. ENT: Pharynx normal. Uvula midline. Moist mucous membranes. Neck: Normal inspection. Neck supple. FROM. CVS: Normal heart rate and rhythm. Respiratory: No respiratory distress. Painless inspiration. Skin: Skin warm and dry. Normal skin color. Normal skin turgor. To right hand/wrist at the radial aspect patient has superficial puncture wounds/bite duenas. He has full range of motion of the right hand/wrist/finger joints no obvious deformities or obvious ligamentous or tendon injury noted. No streaking is noted. No foreign bodies are noted. No active bleeding is noted. Patient with mild tenderness palpation to the right hip/thigh area with superficial puncture wounds. No active bleeding or foreign bodies or obvious ligamentous or tendon injury noted. No additional rashes/lesions/lacerations noted. Extremities: Extremities exhibit normal range of motion. Extremities n ontender. Neuro: Oriented X 3. No motor deficit. No sensory deficit. Reflexes normal. Normal steady gait. No focal neuro deficits noted. Vascular: + radial pulses/+ 2 distal pedal pulses/+2 dorsalis pedis b/l. Normal cap refill. No cyanosis noted to upper extremity nails and lower extremity toes nails. Course Course Course Narrative: CATIE-18:41PM - 22yoM presenting to the ED c c/o of a dog bite that occurred prior to arrival. He reports that it is 1 of the neighborhood dogs and that he knows where the dog resides although he does not know the fine arts teacher and he is not sure if the dog is up-to-date on rabies vaccine. He reports he is unsure if he is up-to-date on his tetanus vaccine. He reports that was unprovoked attack. Otherwise the dog appear well. He is unsure if he has foreign bodies would like to make sure he is not have any fractures. He has a bite to his right hand/wrist at the radial aspect he has full range of motion no obvious deformities although he has puncture wounds noted. And to the right hip has puncture wounds no obvious deformities. I explained to the patient that he will need to contact animal control and tell them where the dog usually resides and they can find him if the dog is not vaccinated then he will need rabies vaccine/immunoglobulin. Plan: Xray of right hand/wrist/hip patient will also need a tetanus vaccine. Patient can be evaluated and [facility] patient is stable. Reevaluation(s) Reevaluation #1: X-rays negative. Patient's tetanus was updated. The wounds were cleans and dressed. No indication for sutures at this time. A patient filled out animal Control consent. Will DC home antibiotics and instructions return if any new or worsening symptoms follow up with primary care provider. Patient understands agrees with this plan. Time: 20:53 Medications Administered Discontinued Medications Generic Name Dose Route Start Last Admin Trade Name Kimo PRN Reason Stop Dose Admin Amoxicillin/Clavulanate Potassium 875 mg 07/01/22 19:34 07/01/22 19:38 Amoxicillin/Potassium Clav 875 Mg Tablet PO 07/01/22 19:35 875 mg ONCE ONE Administration Diphtheria/Tetanus/Acell Pertussis 0.5 ml 07/01/22 18:42 07/01/22 19:21 Diphth,Pertus(Acell),Tet Adult 0.5 Ml Syringe IM 07/01/22 18:43 0.5 ml .ONCE ONE Administration Medical Decision Making Radiology Impression Radiologist Impression: Right hip/right hand and wrist x-rays FINDINGS: Right hand and wrist: No fracture or dislocation. Joint spaces throughout the hand and wrist are maintained. No appreciable soft tissue gas. No radiodense foreign body. Pelvis and right hip: No fracture or dislocation. Small osseous protuberances/CAM deformity at the femoral head neck junction is seen on the frog-leg lateral view. Bilateral hip joint spaces are maintained. Pubic symphysis and SI joints are congruent and intact. No osseous lesion. No radiodense foreign body or soft tissue gas identified. XR/XR hip RT w PEL1V IMPRESSION: 1.? No acute fracture or dislocation identified at the right hand or right hip. 2.? No radiodense foreign body or soft tissue gas. Discharge Plan Discharge Clinical Impression: Dog bite Patient Disposition: Home, Self-Care Instructions: Animal Bite (ED) Additional Instructions: Your x-rays were normal. Please contact animal control tomorrow so that they can look for the dog and find out if the dog has rabies vaccine. The dog does not you have to return for the rabies vaccine series. Prescriptions: New amoxicillin-pot clavulanate 875-125 mg tablet 1 tab PO BID 10 Days Qty: 20 0RF No Action acetaminophen [Tylenol Extra Strength] 500 mg tablet 500 mg PO Q6H PRN (Reason: pain or fever) Qty: 20 0RF naproxen 500 mg tablet 500 mg PO BID PRN (Reason: pain) 10 Days Qty: 20 0RF azithromycin 250 mg tablet See Rx Instructions .ROUTE .COMPLEX Qty: 6 0RF Rx Instructions: For 250 mg dose pack: take 500 mg today (day 1), then 250 mg for 4 days (days 2-5) benzonatate 200 mg capsule 200 mg PO TID PRN (Reason: cough) Qty: 20 0RF amoxicillin 500 mg capsule 500 mg PO TID Qty: 30 0RF Interventions: ED Discharge Assessment Last Done: 07/01/22 20:11 Discharge Date/Time: 07/01/22 20:12
[2022-07-01] MEDS: Diphth,Pertus(ACell),Tet Adult 0.5 ML SYRINGE IM (19:21)
--- NOTE | 2022-07-01 19:23 | PC.NURSE ---
pt medicated per order
[2022-07-01] MEDS: Amoxicillin/Potassium Clav 875 MG TABLET PO (19:38)
--- NOTE | 2022-07-01 20:05 | PC.NURSE ---
patient was given forms to fill out which he was apprehensive about doing so, pt was educated to contact animal control [place] so they can look for the dog to find out if the dog is current with shots. he was also educated that if the dog couldnt be found or if they did not have the the shots that he needs to return for rabies vaccine series.
--- NOTE | 2022-07-01 20:07 | PC.NURSE ---
superficial abrasions cleased with iodine and NS, patted dry, applied non stick dressing followed by samanta and tape. right lateral thigh puctures cleansed with NS and iodine, patted dry followed by DSD and secured with tape. procedure tolerated well by pt, reviewed s/sx of infection
== END 2022-07-01 20:12 | disposition home or self-care (01) ==
LOC: HO.ED 20:11
PROVIDERS: Emergency Provider Emergency Medicine
DX: S61.431A Puncture wound without foreign body of right hand, initial encounter (principal); S71.131A Puncture wound without foreign body, right thigh, initial encounter; W54.0XXA Bitten by dog, initial encounter; Y93.01 Activity, walking, marching and hiking; Y92.480 Sidewalk as the place of occurrence of the external cause; Y99.9 Unspecified external cause status
CPT/HCPCS: 73110; 73130; 73502; 90471; 90715; 99282; 99284

== ENCOUNTER 2022-07-10 09:52 | Emergency (ER) | payer MEDICAID, SELFPAY ==
[2022-07-10 10:38] VITALS: BP 114/72; PULSE 66; RESP 20; TEMP 36.4; O2SAT 98; BMI 27.3
[2022-07-10 12:21] VITALS: BP 133/69; PULSE 52; RESP 14; TEMP 36.6; O2SAT 98
--- NOTE | 2022-07-10 12:52 | ED.NAVMDI ---
HPI - Nausea/Vomiting/Diarrhea General Chief complaint: Nausea/Vomiting/Diarrhea Stated complaint: Abd pain/Vomiting Time Seen by Provider: 07/10/22 12:23 Source: patient Mode of arrival: ambulatory Limitations: no limitations History of Present Illness HPI Narrative: 22-year-old male came in for evaluation of an abdominal pain. Abdominal pain started since this morning as a mid abdominal pain described as severe 10/10, pain is constant, and localized to the whole abdomen, no relieving factor, no aggravating factor, pain is associated with nausea and vomiting and loose stool with no lina diarrhea. Patient had similar symptoms in the past and was diagnosed with colitis. Patient smokes marijuana daily but declined using alcohol. Never had intra-abdominal surgery in the past. No sick contacts, no recent travel, no recent use of antibiotics. Related Data Previous Rx's Medication Instructions Recorded acetaminophen 500 mg tablet 500 mg PO Q6H PRN pain or fever 01/24/21 (Tylenol Extra Strength) #20 tabs naproxen 500 mg tablet 500 mg PO BID PRN pain 10 days #20 01/24/21 tabs benzonatate 200 mg capsule 200 mg PO TID PRN cough #20 caps 03/27/22 amoxicillin 500 mg capsule 500 mg PO TID #30 caps 04/25/22 amoxicillin 875 mg-potassium 1 tab PO BID dog bite 10 days #20 07/01/22 clavulanate 125 mg tablet tabs omeprazole magnesium 20 mg 20 mg PO BID #30 tabs 07/10/22 tablet,delayed release (Prilosec OTC) Allergies Allergy/AdvReac Type Severity Reaction Status Date / Time No Known Allergies Allergy Verified 07/01/22 18:39 Review of Systems Review of Systems: All other systems are reviewed and are negative Constitutional: Reports as per HPI and Reports no additional constitutional complaints Eyes: Reports as per HPI and Reports no additional eye complaints Reports system reviewed and no additional complaints, except as documented Cardiovascular: Reports as per HPI and Reports no additional cardiovascular complaints Respiratory: Reports as per HPI and Reports no additional respiratory complaints Gastrointestinal: Reports as per HPI and Reports no additional gastrointestinal complaints Genitourinary: Reports no additional female genitourinary complaints Musculoskeletal: Reports no additional musculoskeletal complaints Skin/Breast: Reports system reviewed and no additional complaints, except as docu Psychiatric: Reports no additional psychiatric complaints Endocrine: Reports no additional endocrine complaints Hematologic/Lymphatic: Reports no additional hematologic/lymphatic complaints Allergic/Immunologic: Reports no additional allergic/immunologic complaints Reports system reviewed and no additional complaints, except as documented and Reports Abnormal speech present [facility] Past Medical History Medical History No pertinent past medical history Social History Social History Alcohol intake: never Patient Tobacco Use Status: Current everyday Tobacco user Smoked in Last 30 Days: Yes Substance Use Type: Marijuana and Prescription Drugs Substance Use Type Other:: percs Substance Use Frequency: Occasionally Last Used Substance: Days (ago) Any prior treatment program specific to substance use: No Advance Directives: No Advance Directives Information Provided: Yes Physical Exam Vital Signs: Vital Signs: Last Vital Signs Temp 97.8 F 07/10/22 12:21 Pulse 52 07/10/22 12:21 Resp 14 07/10/22 12:21 BP 133/69 07/10/22 12:21 Pulse Ox 98 07/10/22 12:21 O2 Del Method 07/10/22 12:21 BMI result Body Mass Index 27.3 Vital signs have been reviewed as appeared to be correct. Blood pressure normal. Heart rate normal. Respiration rate normal. Temperature normal. Oxygen saturation normal. Appearance: Alert. Oriented X3. No acute distress. Head: Normal external exam. Normocephalic. Atraumatic. No Woodruff signs noted. No raccoon eyes noted Eyes: PERRLA. EOMI. Conjunctiva and sclera normal. Eyelids normal. ENT: TM's Normal. Pharynx normal. Uvula midline. Moist mucous membranes. No trismus noted. No drooling noted. No muffled voice noted. Neck: Normal inspection. Neck supple. FROM. No adenopathy. Thyroid Normal. No meningeal signs. No neck mass noted. CVS: Normal heart rate and rhythm. Heart sound normal. No murmurs noted. Pulses normal throughout. Respiratory: No respiratory distress. Painless inspiration. Breath sounds normal. No wheezes/rales/rhonchi noted. Chest nontender. No accessory muscle usage noted or decreased air movement noted. Abdomen: Soft and nontender. Bowel sounds normal in all 4 quadrants. No distention noted. No organomegaly noted. No visible injury noted. Back: No CVA tenderness. Full range of motion noted. Skin: Skin warm and dry. Normal skin color. Normal skin turgor. No rashes/lesions/lacerations noted. Extremities: No lower extremity edema. Extremities exhibit normal range of motion. Extremities nontender. Neuro: Oriented X 3. Cranial nerve exam: II-XII are grossly intact No motor deficit. No sensory deficit. Reflexes normal. Course Course Course Narrative: Patient feels better after IV fluid/Maalox/Pepcid/Zofran, able to tolerate p.o. intake, unremarkable labs and CT abdomen & pelvis is none revealing. Patient was instructed to try to stop smoking marijuana because likely marijuana is cause of his underlying symptoms. Medications Administered Discontinued Medications Generic Name Dose Route Start Last Admin Trade Name Ikeq PRN Reason Stop Dose Admin Al Hydroxide/Mg Hydroxide 30 ml 07/10/22 12:47 07/10/22 14:25 Magnesium Hydrox/Alum Hydrox 30 Ml Oral.Susp PO 07/10/22 12:48 30 ml ONCE ONE Administration Famotidine 20 mg 07/10/22 12:47 07/10/22 14:35 Famotidine/Pf 20 Mg/2 Ml Vial IVPUSH 07/10/22 12:48 20 mg ONCE ONE Administration Sodium Chloride 1,000 mls @ 999 mls/hr 07/10/22 12:47 07/10/22 14:35 Ns IV 07/10/22 13:47 999 mls/hr .Q1H1M ONE Administration Ondansetron HCl 4 mg 07/10/22 10:41 07/10/22 10:43 Ondansetron Odt 4 Mg Tab.Rapdis TRANSLINGU 07/10/22 10:42 4 mg ONCE ONE Administration Ondansetron HCl 4 mg 07/10/22 12:47 07/10/22 14:35 Ondansetron Hcl 4 Mg/2 Ml Vial IVPUSH 07/10/22 12:48 4 mg ONCE ONE Administration Medical Decision Making Differential Diagnosis Differential Diagnoses: The differential diagnosis associated with the presentation includes (Gastritis/appendicitis/marijuana induced gastritis and vomiting/gastroenteritis) Lab Data MDM Lab Attestation statement: I reviewed the patient's lab results. Result Diagrams: 07/10/22 14:43 07/10/22 14:43 Labs: Lab Results 12/26/22 12/26/22 12/26/22 Range/Units 14:43 14:43 14:43 WBC 12.4 H (4.8-10.8) X10*3/uL RBC 4.81 (4.60-5.80) X10*6/uL Hgb 14.4 (14.0-18.0) g/dl Hct 41.5 L (42.0-52.0) % MCV 86.3 (80.0-98.0) fL MCH 29.9 (27.0-33.0) pg MCHC 34.7 (31.0-36.0) g/dl RDW 11.9 (11.0-16.0) % Plt Count 202 (160-400) X10*3/uL MPV 10.2 (9.4-12.4) fL Immature Gran % (Auto) 0.4 (0.0-0.4) % Neut % (Auto) 88.9 H (45-73) % Lymph % (Auto) 7.4 L (20-40) % Spencer % (Auto) 3.1 (2-11) % Eos % (Auto) 0.0 (0-4) % Baso % (Auto) 0.2 (0-2) % Lymph # (Auto) 0.9 L (1.2-4.9) X10*3/uL Spencer # (Auto) 0.4 (0.1-1.2) X10*3/uL Eos # (Auto) 0.0 (0.0-0.4) X10*3/uL Baso # (Auto) 0.0 (0.0-0.2) X10*3/uL Abs Immat Gran (auto) 0.05 H (0.00-0.03) X10*3/uL Absolute Neuts (auto) 11.0 H (2.0-8.3) x10*3/uL Absolute Nucleated RBC 0.000 (0.0-0.012) X10*3/uL Nucleated RBC % (auto) 0.0 (0.0-0.2) /100WBC Sodium 141 (135-145) mmol/L Potassium 4.3 (3.3-5.1) mmol/L Chloride 103 (96-108) mmol/L Carbon Dioxide 29 (22-29) mmol/L Anion Gap 13 (12-20) BUN 13 (9-16) mg/dL Creatinine 0.75 (0.5-1.4) mg/dL Estim Creat Clear Calc 148.2 Estimated GFR > 60 Random Glucose 121 H (60-115) mg/dL Calcium 10.3 H D (8.4-10.2) mg/dL Total Bilirubin 1.2 H (0.0-1.0) mg/dL Direct Bilirubin 0.4 (0.0-0.5) mg/dL AST 17 (5-37) U/L ALT 13 (0-40) U/L Alkaline Phosphatase 70 (39-117) U/L Total Protein 8.1 H (6.5-8.0) g/dL Albumin 4.9 (3.5-5.0) g/dL Lipase 9 (8-78) U/L Influenza Type A (PCR) NEGATIVE (Negative) Influenza Type B (PCR) NEGATIVE (Negative) RSV RNA Qual (PCR) NEGATIVE (Negative) SARS-CoV-2 RNA (RT-PCR) NEGATIVE (Negative) Independent Interpretation I performed an independent interpretation of an: CT Scan (Abdomen: No acute pathology.) Radiology Impression Discussion of test interpretation with radiology: I have reviewed the radiologist's reading. Discharge Plan Discharge Clinical Impression: Gastritis Patient Disposition: Home, Self-Care Instructions: Gastritis (ED) Prescriptions: New omeprazole magnesium [Prilosec OTC] 20 mg tablet,delayed release (DR/EC) 20 mg PO BID Qty: 30 0RF No Action acetaminophen [Tylenol Extra Strength] 500 mg tablet 500 mg PO Q6H PRN (Reason: pain or fever) Qty: 20 0RF naproxen 500 mg tablet 500 mg PO BID PRN (Reason: pain) 10 Days Qty: 20 0RF benzonatate 200 mg capsule 200 mg PO TID PRN (Reason: cough) Qty: 20 0RF amoxicillin 500 mg capsule 500 mg PO TID Qty: 30 0RF amoxicillin-pot clavulanate 875-125 mg tablet 1 tab PO BID 10 Days Qty: 20 0RF Referrals: [facility] [Primary Care Provider] -
[2022-07-10 14:50] LABS: MANUAL DIFF FLAG NO
[2022-07-10 14:52] LABS: Basophils Percent Auto 0.2 % (0-2); Hematocrit 41.5 % (42.0-52.0); Hemoglobin 14.4 g/dl (14.0-18.0); Imm Gran Abs Auto 0.05 X10*3/uL (0.00-0.03); Imm Gran Pct Auto 0.4 % (0.0-0.4); Lymphocytes Absolute Auto 0.9 X10*3/uL (1.2-4.9); Lymphocytes Percent Auto 7.4 % (20-40); Mean Corpuscular HGB Conc 34.7 g/dl (31.0-36.0); Mean Corpuscular Hemoglobin 29.9 pg (27.0-33.0); Mean Corpuscular Volume 86.3 fL (80.0-98.0); Mean Platelet Volume 10.2 fL (9.4-12.4); Monocytes Absolute Auto 0.4 X10*3/uL (0.1-1.2); Monocytes Percent Auto 3.1 % (2-11); Neutrophils Percent Auto 88.9 % (45-73); Platelet Count 202 X10*3/uL (160-400); Red Blood Count 4.81 X10*6/uL (4.60-5.80); Red Cell Distribution Width 11.9 % (11.0-16.0); White Blood Count 12.4 X10*3/uL (4.8-10.8)
[2022-07-10 15:19] LABS: Alanine Aminotransferase 13 U/L (0-40); Albumin Level 4.9 g/dL (3.5-5.0); Alkaline Phosphatase 70 U/L (39-117); Anion Gap 13 (12-20); Aspartate Amino Transferase 17 U/L (5-37); Bilirubin Direct 0.4 mg/dL (0.0-0.5); Bilirubin Total 1.2 mg/dL (0.0-1.0); Blood Urea Nitrogen 13 mg/dL (9-16); Calcium 10.3 mg/dL (8.4-10.2); Carbon Dioxide 29 mmol/L (22-29); Chloride 103 mmol/L (96-108); Creatinine Clr Calc Pharmacy 148.2; Estimated Glomerular Filt Rate > 60; Glucose Random 121 mg/dL (60-115); Lipase 9 U/L (8-78); Potassium 4.3 mmol/L (3.3-5.1); Sodium 141 mmol/L (135-145); Total Protein 8.1 g/dL (6.5-8.0)
[2022-07-10 15:27] LABS: Influenza A PCR NEGATIVE (Negative); Influenza B PCR NEGATIVE (Negative); Resp Syncy Virus RNA Qual PCR NEGATIVE (Negative); SARS COV2 PCR INHOUSE NEGATIVE (Negative)
== END 2022-07-10 16:50 | disposition home or self-care (01) ==
PROVIDERS: Emergency Provider Emergency Medicine
DX: K29.70 Gastritis, unspecified, without bleeding (principal); R11.2 Nausea with vomiting, unspecified; F12.90 Cannabis use, unspecified, uncomplicated; F17.200 Nicotine dependence, unspecified, uncomplicated; Z20.828 Contact with and (suspected) exposure to other viral communicable diseases
CPT/HCPCS: 0241U; 74176; 80048; 80076; 83690; 85025; 96374; 96375; 99284; J2405

== ENCOUNTER 2024-04-16 08:48 | Emergency (ER) | payer MEDICAID, SELFPAY ==
--- NOTE | ~2024-04-16 | CT_ITS ---
EXAMINATION: CT ABDOMEN AND PELVIS WITH CONTRAST CLINICAL INFORMATION: Abdominal pain COMPARISON: 07/10/2022 TECHNIQUE: Multidetector volumetric images were obtained from the superior aspect of the liver through the pubic symphysis following administration 85 mL of Omnipaque 350 intravenous contrast. Sagittal and coronal reformatted images were obtained on the technologist's workstation. Oral contrast: No This CT examination was performed using dose optimization techniques as appropriate, variously including the following: *Automated exposure control *Adjustment of mA and/or kV according to patient size (this includes techniques or standardized protocols for targeted exams where dose is matched to indication/reason for exam; i.e. extremities or head) *Use of iterative reconstruction technique DLP: 502 mGy-cm FINDINGS: LUNG BASES: The visualized lung bases are unremarkable. LIVER, GALLBLADDER, AND BILIARY TREE: The liver is normal in size, shape, and attenuation. No focal hepatic lesion or biliary ductal dilatation is present. The gallbladder is unremarkable with no evidence of radiopaque gallstones, gallbladder wall thickening, or obvious pericholecystic inflammatory changes. PANCREAS: Unremarkable. SPLEEN: Unremarkable. ADRENAL GLANDS: Unremarkable. KIDNEYS AND URETERS: The kidneys are normal in size, shape, and attenuation. No hydronephrosis, hydroureter, or calculi seen. No perinephric stranding. BLADDER: Unremarkable. GASTROINTESTINAL TRACT: The colon is decompressed. No bowel obstruction or right or left lower quadrant inflammatory change. There is a tiny tubular structure near the base of the cecum possibly the appendix. No evidence for appendicitis or pericecal inflammation. ABDOMINAL WALL: No significant hernia is appreciated. LYMPH NODES: Normal. VASCULAR: Unremarkable. PELVIC VISCERA: Unremarkable. OSSEOUS STRUCTURES: Unremarkable. CT/CT abdomen pelvis w IV con IMPRESSION: No acute findings. No evidence for appendicitis. Fleischner guidelines were followed. Electronically signed by: Franky Al MD 04/16/2024 11:12 AM EDT
--- NOTE | 2024-04-16 08:54 | ED.NAVMDI ---
HPI - Nausea/Vomiting/Diarrhea General Chief complaint: Abdominal Pain Stated complaint: abd pain-vomiting Time Seen by Provider: 04/16/24 08:53 Source: patient Mode of arrival: ambulatory Limitations: no limitations History of Present Illness HPI Narrative: 23 year old male known daily marijuana use with likely cannabis hyperemesis, opiate use who presents to the ER with vomiting and abdominal pain. He is here with his mother who states that he has inflammation his appendix. She states she was seen at urgent care did not get a CT scan but were told to come to ED they did not come until today. Patient states he has never been told his vomiting is due to cannabis he states he has never been any other hospitalist he was here in 2021 for the same thing. MD elicited complaint: nausea, vomiting and abdominal pain Related Data Previous Rx's ?Medication ?Instructions ?Recorded acetaminophen 500 mg tablet 500 mg PO Q6H PRN pain or fever 01/24/21 (Tylenol Extra Strength) #20 tabs naproxen 500 mg tablet 500 mg PO BID PRN pain 10 days #20 01/24/21 tabs benzonatate 200 mg capsule 200 mg PO TID PRN cough #20 caps 03/27/22 amoxicillin 500 mg capsule 500 mg PO TID #30 caps 04/25/22 amoxicillin 875 mg-potassium 1 tab PO BID dog bite 10 days #20 07/01/22 clavulanate 125 mg tablet tabs omeprazole magnesium 20 mg 20 mg PO BID #30 tabs 07/10/22 tablet,delayed release (Prilosec OTC) ondansetron 4 mg disintegrating 4 mg PO Q6H #14 tabs 04/16/24 tablet Allergies Allergy/AdvReac Type Severity Reaction Status Date / Time No Known Allergies Allergy Verified 04/16/24 09:06 Review of Systems Review of Systems: Review of systems: General: Patient denies any fever chills recent illness or falls Musculoskeletal: Denies back pain or body aches or other injuries HEENT: denies headache, runny nose, ear pain Respiratory: denies shortness of breath, cough Cardiovascular: no chest pain or palpitations : denies dysuria, frequency Abdomen: nausea vomiting suprapubic abdominal pain Extremities: no swelling, no pain Skin: no diaphoresis Yes all other systems are reviewed and are negative PMFSH Past Medical History Medical History No pertinent past medical history Social History Social History Alcohol intake: never Patient Tobacco Use Status: Current everyday Tobacco user Smoked in Last 30 Days: No Substance Use Type: Marijuana and Prescription Drugs Advance Directives: No Do you have a plan to hurt others: No Plan Physical Exam Vital Signs: Vital Signs: Last Vital Signs Temp 98.1 F 04/16/24 09:31 Pulse 52 04/16/24 09:31 Resp 20 04/16/24 09:31 BP 114/62 04/16/24 09:31 Pulse Ox 98 04/16/24 09:31 O2 Del Method Room Air 04/16/24 09:31 BMI result Body Mass Index 27.7 General: Well-appearing well-nourished in no signs of distress HEENT: Normocephalic atraumatic Neck: No signs of JVD, no masses no tenderness or lymphadenopathy Cardiovascular: Regular rate and rhythm Respiratory: Clear to auscultation bilaterally Abdomen: Soft nontender no masses Extremities: Normal pedal pulses no signs of edema Skin: Dry warm no rashes Back: No tenderness full ROM Course Reevaluation(s) Reevaluation #1: I explained all the labs patient into his mom was at the bedside eating chips. Patient is sleeping with a blanket over his head. Patient looks well workup has so far unremarkable I am waiting for a CT I did explain again the dangers of radiation exposure and that I do not feel he needs CT scan patient remains adamant wanting to be done. Time: 10:06 Reevaluation #2: CT scan was done and is again normal I will discharge the patient home with Mitra again educated the patient on cessation of marijuana Time: 11:18 Medications Administered Discontinued Medications Generic Name Dose Route Start Last Admin Trade Name Freq PRN Reason Stop Dose Admin Diphenhydramine HCl 25 mg 04/16/24 09:07 04/16/24 09:24 Diphenhydramine Hcl 50 Mg/Ml Vial IVPUSH 04/16/24 09:08 25 mg ONCE ONE Administration Haloperidol Lactate 5 mg 04/16/24 09:07 04/16/24 09:24 Haloperidol Lactate 5 Mg/Ml Vial IVPUSH 04/16/24 09:08 5 mg ONCE ONE Administration Sodium Chloride 1,000 mls @ 999 mls/hr 04/16/24 09:15 04/16/24 09:31 Ns IV 04/16/24 10:15 999 mls/hr .Q1H1M MICHAEL Administration Iohexol 100 ml 04/16/24 10:37 04/16/24 10:38 Iohexol 350 Mg/Ml 100 Ml Infus..Btl IV 04/16/24 10:38 85 ml ONCE ONE Administration Morphine Sulfate 4 mg 04/16/24 09:07 04/16/24 09:24 Morphine Sulfate 4 Mg/Ml Cartridge IVPUSH 04/16/24 09:08 4 mg ONCE ONE Administration Protocol Medical Decision Making Medical Decision Making MDM Narrative: Patient actively vomiting but was we will give patient fluids Haldol Benadryl morphine fluids check labs while I explained that I do not think this patient anything acutely surgical his abdomen they were adamant that he had appendicitis and that he had to get a CT scan I will send the patient for CT scan did explain the risks radiation exposure there was still item CT scan had to be done I did try to explain this is likely related to marijuana use they are adamant that was not problem. Differential Diagnosis Differential Diagnoses: The differential diagnosis associated with the presentation includes Abdominal pain less likely appendicitis versus cannabis hyperemesis dehydration electrolyte abnormality Lab Data [facility] Lab Attestation statement: I reviewed the patient's lab results. 04/16/24 09:23 04/16/24 09:23 Labs: Lab Results 04/16/24 Range/Units 09:23 WBC 7.0 (4.8-10.8) X10*3/uL RBC 4.85 (4.60-5.80) X10*6/uL Hgb 14.9 (14.0-18.0) g/dl Hct 42.1 (42.0-52.0) % MCV 86.8 (80.0-98.0) fL MCH 30.7 (27.0-33.0) pg MCHC 35.4 (31.0-36.0) g/dl RDW 12.5 (11.0-16.0) % Plt Count 201 (160-400) X10*3/uL MPV 11.0 (9.4-12.4) fL Immature Gran % (Auto) 0.3 (0.0-0.4) % Neut % (Auto) 61.1 (45-73) % Lymph % (Auto) 30.5 (20-40) % Kerr % (Auto) 7.0 (2-11) % Eos % (Auto) 0.7 (0-4) % Baso % (Auto) 0.4 (0-2) % Lymph # (Auto) 2.1 (1.2-4.9) X10*3/uL Kerr # (Auto) 0.5 (0.1-1.2) X10*3/uL Eos # (Auto) 0.1 (0.0-0.4) X10*3/uL Baso # (Auto) 0.0 (0.0-0.2) X10*3/uL Abs Immat Gran (auto) 0.02 (0.00-0.03) X10*3/uL Absolute Neuts (auto) 4.3 (2.0-8.3) x10*3/uL Absolute Nucleated RBC 0.000 (0.0-0.012) X10*3/uL Nucleated RBC % (auto) 0.0 (0.0-0.2) /100WBC Sodium 139 (135-145) mmol/L Potassium 3.7 (3.3-5.1) mmol/L Chloride 104 (96-108) mmol/L Carbon Dioxide 24 (22-29) mmol/L Anion Gap 15 (12-20) BUN 10 (9-16) mg/dL Creatinine 0.83 (0.5-1.4) mg/dL Estim Creat Clear Calc 143.7 Estimated GFR > 60 Random Glucose 108 (60-115) mg/dL Calcium 10.0 (8.4-10.2) mg/dL Total Bilirubin 1.4 H (0.0-1.0) mg/dL Direct Bilirubin 0.5 (0.0-0.5) mg/dL AST 15 (5-37) U/L ALT 7 (0-40) U/L Alkaline Phosphatase 71 (39-117) U/L Total Protein 8.1 H (6.5-8.0) g/dL Albumin 4.3 (3.5-5.0) g/dL Lipase 11 (8-78) U/L Ethyl Alcohol < 10 mg/dL Independent Interpretation I performed an independent interpretation of an: EKG and CT Scan Interpretation: Rate 63 normal sinus rhythm normal intervals no signs of ischemia QTC is 405. Radiology Impression Discussion of test interpretation with radiology: I discussed test interpretation with the radiologist and I have reviewed the radiologist's reading. 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 You had labs and a CT scan done which were all normal. I do believe this is partly a problem due to your cannabis use. We do not know why but some people when they smoke daily have recurrent vomiting syndrome which can be very disabling to the point where you can not function. Especially where we have normal labs and a CT scan that shows there is no acute abnormality. The only way to avoid this is to stop smoking. Cannabis does deposits your fat cells so can take 90 days for to get out of your system. I do understand that nobody who smokes marijuana wants to hear this could be a cause. We do see this frequently here in the ER. Please call follow up with her doctor please stop smoking marijuana. Prescriptions: New ondansetron 4 mg tablet,disintegrating 4 mg PO Q6H Qty: 14 0RF No Action acetaminophen [Tylenol Extra Strength] 500 mg tablet 500 mg PO Q6H PRN (Reason: pain or fever) Qty: 20 0RF naproxen 500 mg tablet 500 mg PO BID PRN (Reason: pain) 10 Days Qty: 20 0RF benzonatate 200 mg capsule 200 mg PO TID PRN (Reason: cough) Qty: 20 0RF amoxicillin 500 mg capsule 500 mg PO TID Qty: 30 0RF amoxicillin-pot clavulanate 875-125 mg tablet 1 tab PO BID 10 Days Qty: 20 0RF omeprazole magnesium [Prilosec OTC] 20 mg tablet,delayed release (DR/EC) 20 mg PO BID Qty: 30 0RF Print Language: Urdu
[2024-04-16 09:04] VITALS: BP 103/51; PULSE 77; RESP 18; O2SAT 95; BMI 27.7
--- NOTE | 2024-04-16 09:07 | ECG_ITS ---
Test Reason : vomiting Blood Pressure : / mmHG Vent. Rate : 063 BPM Atrial Rate : 063 BPM P-R Int : 138 ms QRS Dur : 106 ms QT Int : 396 ms P-R-T Axes : 015 062 048 degrees QTc Int : 405 ms Normal sinus rhythm with sinus arrhythmia Normal ECG When compared with ECG of 22-SEP-2011 11:36, PREVIOUS ECG IS PRESENT No significant change was found Referred By: Rajeev Armenta Electronically Signed By:PHIL TOMPKINS
[2024-04-16] MEDS: diphenhydrAMINE HCL 50 MG/ML VIAL 25 MG IVPUSH (09:24)
[2024-04-16] MEDS: Morphine Sulfate 4 MG/ML CARTRIDGE IVPUSH (09:24)
[2024-04-16] MEDS: Haloperidol Lactate 5 MG/ML VIAL IVPUSH (09:24)
[2024-04-16 09:31] VITALS: BP 114/62; PULSE 52; RESP 20; TEMP 36.7; O2SAT 98
[2024-04-16] MEDS: 0.9 % Sodium Chloride 1,000 ML 999 ML IV (09:31)
[2024-04-16 09:36] LABS: MANUAL DIFF FLAG NO
[2024-04-16 09:37] LABS: Basophils Percent Auto 0.4 % (0-2); Eosinophils Absolute Auto 0.1 X10*3/uL (0.0-0.4); Eosinophils Percent Auto 0.7 % (0-4); Hematocrit 42.1 % (42.0-52.0); Hemoglobin 14.9 g/dl (14.0-18.0); Imm Gran Abs Auto 0.02 X10*3/uL (0.00-0.03); Imm Gran Pct Auto 0.3 % (0.0-0.4); Lymphocytes Absolute Auto 2.1 X10*3/uL (1.2-4.9); Lymphocytes Percent Auto 30.5 % (20-40); Mean Corpuscular HGB Conc 35.4 g/dl (31.0-36.0); Mean Corpuscular Hemoglobin 30.7 pg (27.0-33.0); Mean Corpuscular Volume 86.8 fL (80.0-98.0); Monocytes Absolute Auto 0.5 X10*3/uL (0.1-1.2); Neutrophils Absolute Auto 4.3 x10*3/uL (2.0-8.3); Neutrophils Percent Auto 61.1 % (45-73); Platelet Count 201 X10*3/uL (160-400); Red Blood Count 4.85 X10*6/uL (4.60-5.80); Red Cell Distribution Width 12.5 % (11.0-16.0)
--- NOTE | 2024-04-16 09:44 | PC.NURSE ---
Pt comes from home for nausea/vomiting x3 days. A/ox4, no increased wob/sob, lung sounds cta bilaterally, s1 and s2 heard, pt placed on color grinder HR-60s, abdomen tender on palpation. Pt vomiting yellow/green emesis. Pt states mid abdominal pain, sharp and acute. States he doesn't believe he ate anything different that could cause this. Medicated per MAR. Family at bedside, call keen within reach, all needs met at this time.
--- NOTE | 2024-04-16 09:57 | PC.NURSE ---
Pt resting more comfortably after medication administration. Call keen within reach, all needs met at this time.
[2024-04-16 09:58] LABS: Alanine Aminotransferase 7 U/L (0-40); Albumin Level 4.3 g/dL (3.5-5.0); Alkaline Phosphatase 71 U/L (39-117); Anion Gap 15 (12-20); Aspartate Amino Transferase 15 U/L (5-37); Bilirubin Direct 0.5 mg/dL (0.0-0.5); Bilirubin Total 1.4 mg/dL (0.0-1.0); Blood Urea Nitrogen 10 mg/dL (9-16); Carbon Dioxide 24 mmol/L (22-29); Chloride 104 mmol/L (96-108); Creatinine Clr Calc Pharmacy 143.7; Estimated Glomerular Filt Rate > 60; Ethanol < 10 mg/dL; Glucose Random 108 mg/dL (60-115); Lipase 11 U/L (8-78); Potassium 3.7 mmol/L (3.3-5.1); Sodium 139 mmol/L (135-145); Total Protein 8.1 g/dL (6.5-8.0)
[2024-04-16] MEDS: iohexoL 350 MG/ML 100 ML INFUS..BTL IV (10:38)
[2024-04-16 11:37] VITALS: BP 114/62; PULSE 52; RESP 18; TEMP 36.7; O2SAT 98
== END 2024-04-16 11:39 | disposition home or self-care (01) ==
PROVIDERS: Emergency Provider Student in an Organized Health Care Education/Training Program
DX: R11.2 Nausea with vomiting, unspecified (principal); F12.10 Cannabis abuse, uncomplicated; F17.200 Nicotine dependence, unspecified, uncomplicated
CPT/HCPCS: 36415; 74177; 80048; 80076; 80307; 83690; 85025; 93005; 96361; 96374; 96375; 99284; 99285; J1200; J1630; J2270; Q9967

== ENCOUNTER 2024-06-09 06:50 | Emergency (ER) | payer MEDICAID, SELFPAY ==
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
--- NOTE | ~2024-06-09 | XR_ITS ---
. Electronically signed by: Angelo Martinez MD 06/09/2024 09:04 PM [facility]
--- NOTE | 2024-06-09 06:51 | ECG_ITS ---
Test Reason : trauma Blood Pressure : / mmHG Vent. Rate : 089 BPM Atrial Rate : 000 BPM P-R Int : 000 ms QRS Dur : 096 ms QT Int : 374 ms P-R-T Axes : 000 071 049 degrees QTc Int : 455 ms Artifact in tracing Probably normal sinus rhythm No significant changes when compared with the previous EKG of 16 apr 2024 Referred By: Ken Sidhu Electronically Signed By:EUGENIE CLEANING
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
[2024-06-09 06:54] VITALS: BP 149/80; PULSE 92; RESP 19; TEMP 37.1; O2SAT 98; BMI 23.3
[2024-06-09] MEDS: fentaNYL citrate/PF 100 MCG/2 ML VIAL 50 MCG IVPUSH ×2 (07:00→07:15)
[2024-06-09 07:12] LABS: MANUAL DIFF FLAG NO
[2024-06-09 07:13] LABS: Basophils Percent Auto 0.4 % (0-2); Eosinophils Absolute Auto 0.1 X10*3/uL (0.0-0.4); Eosinophils Percent Auto 1.1 % (0-4); Hematocrit 40.4 % (42.0-52.0); Hemoglobin 14.3 g/dl (14.0-18.0); Imm Gran Abs Auto 0.02 X10*3/uL (0.00-0.03); Imm Gran Pct Auto 0.3 % (0.0-0.4); Lymphocytes Absolute Auto 3.9 X10*3/uL (1.2-4.9); Lymphocytes Percent Auto 51.5 % (20-40); Mean Corpuscular HGB Conc 35.4 g/dl (31.0-36.0); Mean Corpuscular Hemoglobin 31.1 pg (27.0-33.0); Mean Corpuscular Volume 87.8 fL (80.0-98.0); Mean Platelet Volume 10.5 fL (9.4-12.4); Monocytes Absolute Auto 0.6 X10*3/uL (0.1-1.2); Monocytes Percent Auto 7.8 % (2-11); Neutrophils Percent Auto 38.9 % (45-73); Platelet Count 171 X10*3/uL (160-400); Red Cell Distribution Width 12.4 % (11.0-16.0); White Blood Count 7.6 X10*3/uL (4.8-10.8)
[2024-06-09 07:14] VITALS: BP 112/64; PULSE 94; RESP 20; O2SAT 96
[2024-06-09] MEDS: 0.9 % Sodium Chloride 1,000 ML 999 ML IV (07:15)
[2024-06-09 07:16] LABS: VBG Base Excess 0.9 mmol/L; VBG HCO3 28 mmol/L (22-26); VBG pCO2 54 mmHg; VBG pH 7.31 (7.32-7.43); VBG pO2 34 mmHg
[2024-06-09 07:17] LABS: Venous Blood Gas Refer to POC result
[2024-06-09 07:18] LABS: Glucose, Whole Blood 120 mg/dL (60-115)
[2024-06-09 07:20] VITALS: BP 127/73; PULSE 78; RESP 18; O2SAT 95
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
[2024-06-09 07:27] LABS: Ethanol < 10 mg/dL
[2024-06-09 07:29] VITALS: BP 130/71; PULSE 82; RESP 18; O2SAT 96
[2024-06-09 07:30] LABS: Alanine Aminotransferase 13 U/L (0-40); Alkaline Phosphatase 81 U/L (39-117); Anion Gap 20 (12-20); Aspartate Amino Transferase 23 U/L (5-37); Bilirubin Direct 0.5 mg/dL (0.0-0.5); Bilirubin Total 1.2 mg/dL (0.0-1.0); Blood Urea Nitrogen 10 mg/dL (9-16); Calcium 10.2 mg/dL (8.4-10.2); Carbon Dioxide 23 mmol/L (22-29); Chloride 100 mmol/L (96-108); Creatinine Clr Calc Pharmacy 107.9; Estimated Glomerular Filt Rate > 60; Glucose Random 135 mg/dL (60-115); Lipase 9 U/L (8-78); Magnesium 2.3 mg/dL (1.6-2.6); Potassium 3.1 mmol/L (3.3-5.1); Sodium 140 mmol/L (135-145); Total Protein 8.5 g/dL (6.5-8.0)
[2024-06-09 07:33] LABS: Lactic Acid 7.5 mmol/L (0.5-2.0)
[2024-06-09 07:35] VITALS: BP 130/71; PULSE 79; RESP 18; O2SAT 96
--- NOTE | 2024-06-09 07:50 | PC.NURSE ---
Report given to EMS
--- NOTE | 2024-06-09 07:57 | PC.NURSE ---
Report given to [facility] ER, imaging disc to go with patient
--- NOTE | 2024-06-09 08:01 | PC.NURSE ---
Transferred to [facility] via EMS, at time of transfer patient alert and oriented, reporting pain is much improved. Family in waiting room aware that patient is being transferred to [facility]
[2024-06-09 08:03] VITALS: BP 130/71; PULSE 79; RESP 18; TEMP 37.1; O2SAT 96
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
[2024-06-09 09:12] LABS: Reflex Lactate? Lactic Acid Added
== END 2024-06-09 08:05 | disposition short-term general hospital (02) ==
PROVIDERS: Emergency Medicine; Emergency Provider Emergency Medicine
DX: S21.119A Laceration without foreign body of unspecified front wall of thorax without penetration into thoracic cavity, initial encounter (principal); S41.112A Laceration without foreign body of left upper arm, initial encounter; S11.91XA Laceration without foreign body of unspecified part of neck, initial encounter; X99.9XXA Assault by unspecified sharp object, initial encounter; Y93.89 Activity, other specified; Y92.9 Unspecified place or not applicable; Y99.9 Unspecified external cause status
CPT/HCPCS: 36415; 71045; 73060; 80048; 80076; 80307; 82803; 82947; 83605; 83690; 83735; 85025; 86850; 86900; 86901; 93005; 99285; J3010

== ENCOUNTER → 2024-06-09 06:51 | Outpatient (BNV) | payer MEDICAID, SELFPAY | PROVIDERS: Emergency Provider Emergency Medicine; Visit Provider Internal Medicine | DX: S21.202A Unspecified open wound of left back wall of thorax without penetration into thoracic cavity, initial encounter (principal); S41.102A Unspecified open wound of left upper arm, initial encounter; S11.90XA Unspecified open wound of unspecified part of neck, initial encounter; X99.1XXA Assault by knife, initial encounter | CPT/HCPCS: 93010 ==